=== PATIENT | female | born 2000 | race Hispanic/Latino ===

== ENCOUNTER 2021-07-18 00:09 | Emergency (ER) | payer SELFPAY ==
[2021-07-18 00:46] LABS: Absolute Lymphocytes (CBC) 4.9 K/uL (0.7-4.9); Basophils % 0.9 % (0-1.3); Hematocrit 37.8 % (36.0-45.0); Lymphocytes % 30.2 % (15.3-44.8); RBC Red Blood Cell Count 4.51 M/uL (3.86-4.86)
[2021-07-18 00:47] LABS: Protime INR 1.06
[2021-07-18 00:48] LABS: Urine Blood Negative (Negative); Urine Glucose Negative (Negative); Urine Protein Negative (Negative); Urine Specific Gravity 1.025 (1.005-1.030); Urine pH 6.5 (5.0-7.0)
[2021-07-18 01:03] LABS: Barbiturates NEGATIVE (NEGATIVE); Benzodiazepines NEGATIVE (NEGATIVE); Cocaine NEGATIVE (NEGATIVE); METHAMPHETAM NEGATIVE (NEGATIVE); Methadone NEGATIVE (NEGATIVE); Opiates NEGATIVE (NEGATIVE); Phencyclidine NEGATIVE (NEGATIVE); THC Cannibis POSITIVE (NEGATIVE)
[2021-07-18 01:12] LABS: Potassium 2.7 mmol/L (3.5-5.1)
[2021-07-18 02:14] LABS: Urine Specific Gravity/Preg 1.025 (1.005-1.030)
[2021-07-18] MEDS ORDERED: KCL 20 MEQ/100 mL IVPB 20 MEQ/100 ML BAG IV ONE (02:43)
[2021-07-18] MEDS ORDERED: POTASSIUM 25 MEQ EFFERV TAB ONE (02:43)
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
[2021-07-18 04:52] VITALS: BP 112/58; TEMP 98.8; O2SAT 99
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
== END 2021-07-18 04:21 | disposition home or self-care (01) ==
LOC: ER 00:09
DX: E87.6 Hypokalemia (principal); S80.12XA Contusion of left lower leg, initial encounter; V47.5XXA Car driver injured in collision with fixed or stationary object in traffic accident, initial encounter; T43.8X5A Adverse effect of other psychotropic drugs, initial encounter
CPT/HCPCS: 36415; 70450; 71260; 72125; 74177; 80048; 80307; 80320; 81003; 81025; 82565; 85025; 85610; 85730; 86850; 86900; 86901; 93005; J3480; Q9967